=== PATIENT | male | born 1995 | race African-American/Black ===

== ENCOUNTER 2020-07-18 12:39 | Emergency (ER) | payer OTHER ==
[2020-07-18 13:38] LABS: RAPID STREP SCREEN Negative (Negative)
[2020-07-18] MEDS ORDERED: CHERRY SYRUP 10 ML UDC PO ONE (13:45)
[2020-07-18] MEDS ORDERED: DEXAMETHASONE 10 MG/ML VIAL PO STA (13:45)
[2020-07-18] MEDS ORDERED: PENICILLIN VK 250 MG TABLET PO STA (13:45)
--- NOTE | 2020-07-18 13:48 | ED Physician Documentation ---
History of Present Illness - Stated complaint Stated Complaint: SORE THROAT, FEVER - Chief complaint Chief Complaint: General - History obtained from History obtained from: Patient - History of Present Illness Timing: Today Pain level max: 0 Pain level now: 0 - Additonal information Additional information: 25-year-old male presents to the emergency department with a sore throat, started 2 days ago. No fevers but has had chills. No cough. No rhinorrhea or congestion. Worse with swallowing. Nothing makes it better. No abdominal pain, nausea, vomiting. Review of Systems Constitutional: reports: Chills. denies: Fever Throat: reports: Sore throat Cardiac: denies: Chest pain / pressure Respiratory: denies: Dyspnea, Cough, Wheezing GI: denies: Vomiting, Diarrhea Skin: denies: Rash PD PAST MEDICAL HISTORY - Past Medical History Past Medical History: No - Past Surgical History Past Surgical History: Yes General: Other - Present Medications Home Medications: Ambulatory Orders Medication Instructions Recorded Confirmed Penicillin V Potassium 500 mg PO Q6HR #40 tablet 07/18/20 - Allergies Allergies/Adverse Reactions: Allergies Allergy/AdvReac Type Severity Reaction Status Date / Time No Known Drug Allergies Allergy Verified 07/18/20 12:46 - Social History Does the pt smoke?: No Smoking Status: Never smoker Does the pt drink ETOH?: No Does the pt have substance abuse?: No - Immunizations Immunizations are current?: Yes - POLST Patient has POLST: No PD ED PE NORMAL - Vitals Vital signs reviewed: Yes - General General: Alert and oriented X 3, No acute distress, Well developed/nourished - HEENT HEENT: Ears normal, Moist mucous membranes, Other (Posterior oropharynx is erythematous with tonsillar exudates. Normal phonation. No trismus. Uvula midline.) - Neck Neck: Supple, no meningeal sign, Other (Shotty anterior lymphadenopathy) - Cardiac Cardiac: RRR - Respiratory Respiratory: No respiratory distress, Clear bilaterally - Abdomen Abdomen: Soft, Non tender, Non distended - Derm Derm: Warm and dry - Neuro Neuro: Alert and oriented X 3 - Psych Psych: Normal mood, Normal affect Results - Vitals Vitals: Vital Signs - 24 hr 07/18/20 07/18/20 12:47 13:53 Temperature 37.2 C 37 C Heart Rate 88 87 Respiratory 18 16 Rate Blood Pressure 125/86 H 136/82 H O2 Saturation 100 100 Oxygen O2 Source Room air - Labs Labs: Laboratory Tests 07/18/20 13:15 Group A Strep Rapid Negative PD MEDICAL DECISION MAKING - ED course Complexity details: reviewed results, considered differential, d/w patient ED course: Patient with what appears to be pharyngitis, appears consistent with strep pharyngitis, rapid strep is negative, suspect an alternative strep besides group A. We will treat with antibiotics. Given dexamethasone. Tolerating p.o. without difficulty. No evidence of peritonsillar abscess or retropharyngeal abscess. Patient counseled regarding signs and symptoms for which I believe and urgent re-evaluation would be necessary. Patient with good understanding of and agreement to plan and is comfortable going home at this time This document was made in part using voice recognition software. While efforts are made to proofread this document, sound alike and grammatical errors may occur. Departure - Departure Disposition: 01 Home, Self Care Clinical Impression: Pharyngitis Qualifiers: Pharyngitis/tonsillitis etiology: streptococcus Qualified Code(s): J02.0 - Streptococcal pharyngitis Condition: Good Instructions: ED Strep Pharyngitis Poss Follow-Up: your,doctor in 1 week if not better [Other] Prescriptions: Penicillin V Potassium 500 mg PO Q6HR #40 tablet Comments: Drink plenty of fluids. Return if you worsen. Your rapid strep is negative, we will call you if your culture is positive. You can use Motrin or Tylenol as needed for pain. You have a Covid test pending. You need to self quarantine until the result is done and negative. Do not leave your house. Do not get near anybody. The results should be done in 48 to 72 hours. We will call with a positive result, the fastest way to get a negative result for confirmation though is to go to the hospital website at [email or web address], click on the my [facility] tab and sign up for the patient portal. If any friends or family get sick and would like to have a Covid test done, but do not have signs or symptoms that would necessitate being hospitalized, we encourage testing through our coronavirus swabbing station, call [phone] to schedule an appointment. Discharge Date/Time: 07/18/20 13:56
[2020-07-18 13:55] VITALS: BP 136/82
== END 2020-07-18 13:56 | disposition home or self-care (01) ==
LOC: ED 12:39
DX: J02.0 Streptococcal pharyngitis (principal); Z20.828 Contact with and (suspected) exposure to other viral communicable diseases
CPT/HCPCS: 87070; 87430; 87635; 99283; 99284; A9270